=== PATIENT | female | born 1970 | race Caucasian/White ===

== ENCOUNTER → 2017-04-15 | Outpatient (CLI) | payer OTHER ==
[~2017-04-15] MED LIST: ALBU3IS INH; ALBU90OI6 INH; AZELASTINE137 MCG/0.; CEPH500 PO; CETI5 PO; DULERA 100 MCG/13 GM INH; EPIPEN0.3 MG/0.3 IJ; Flovent Diskus50 MCG IH; MONT10T PO; Pyridium200 MG PO
[2017-04-19 10:56] LABS: HPV Genotype 16 Not Detected (NOTDET); HPV Genotype 18 Not Detected (NOTDET)
[2017-05-06 13:24] LABS: HPV High Risk Other Not Detected (NOTDET)
== END | disposition home or self-care (01) ==
LOC: LAB 18:26
PROVIDERS: Physician Assistant
DX: Z01.419 Encounter for gynecological examination (general) (routine) without abnormal findings (principal)
CPT/HCPCS: 87624; G0145

== ENCOUNTER 2018-02-22 21:34 | Emergency (ER) | payer OTHER ==
[~2018-02-22] VITALS: Ht 170.2 cm; Wt 99.8 kg
[2018-02-22] MEDS ORDERED: CETI5 PO (21:49)
[2018-02-22] MEDS ORDERED: MONT10T PO (21:49)
[2018-02-22] MEDS ORDERED: ALBU3IS INH (21:52)
[2018-02-22] MEDS ORDERED: Flovent Diskus50 MCG IH (21:53)
[2018-02-22] MEDS ORDERED: DULERA 100 MCG/13 GM INH (21:53)
[2018-02-22] MEDS ORDERED: EPIPEN0.3 MG/0.3 IJ (21:53)
[2018-02-22] MEDS ORDERED: AZELASTINE137 MCG/0. (21:58)
[2018-02-22] MEDS ORDERED: ALBU90OI6 INH (21:59)
[2018-02-22 22:00] LABS: Source, Urine Clean Catch
[2018-02-22 22:19] LABS: Bilirubin, Urine Neg (Neg); Blood, Urine 5+ (Neg); Glucose Qualitative, Urine Neg (Neg); Ketones, Urine Neg (Neg); Leukocyte Esterase, Urine 3+ (Neg); Nitrite, Urine Pos (Neg); Protein, Urine 3+ (Neg); Urobilinogen, Urine NORM (Normal)
[2018-02-22 22:20] LABS: Appearance, Urine Cloudy (Clear); Color, Urine Yellow (P-Yellow)
[2018-02-22 22:28] LABS: Bacteria Many /hpf; Squamous Epithelial Cells Few /hpf (Few); White Blood Cells, Urine 50-100 /hpf (0-5)
[2018-02-22 22:29] LABS: Red Blood Cells, Urine 50-100 /hpf (0-2)
[2018-02-23] MEDS ORDERED: CEPH500 PO (00:34)
[2018-02-23] MEDS ORDERED: Pyridium200 MG PO (00:34)
== END 2018-02-23 00:58 | disposition home or self-care (01) ==
LOC: ER 21:34
PROVIDERS: Emergency Medicine
DX: N30.90 Cystitis, unspecified without hematuria (principal); J45.909 Unspecified asthma, uncomplicated; I10 Essential (primary) hypertension; Z88.0 Allergy status to penicillin; Z88.1 Allergy status to other antibiotic agents; Z88.8 Allergy status to other drugs, medicaments and biological substances; Z79.899 Other long term (current) drug therapy
CPT/HCPCS: 74176; 81001; 87077; 87086; 87186; 96372; 99284-25; J1885

== ENCOUNTER 2018-11-24 07:21 | Day surgery (SDC) | payer OTHER ==
[~2018-11-24] VITALS: Ht 170.2 cm; Wt 107.4 kg
[~2018-11-24 07:21] MED LIST changes: +BUDE6HFA INH; +HYDCHL25 PO; +Mobic15 MG PO; +NASAL DECONGEST30 MG PO; +SUMA25 PO; +XYZAL5 MG PO
[2018-11-24] MEDS ORDERED: MONT10T PO (08:16)
--- NOTE | 2018-11-24 08:32 | NUR ---
11/24/18 0832 Jc Gonzalez FIRST IV ATTEMPTED IN LEFT WRIST. PT TOW. VEIN BLEW.
--- NOTE | 2018-11-24 10:21 | NUR ---
11/24/18 Ramesh1 Cherrie Myrick PT C/O "NOT FEELING WELL". GAVE PT SALTINES AND RIVERA MIST. ASKED PT IF SHE WANTED MORE ANTIN[place]SEA MEDS AND PT DECLINES AT THIS TIME. "I WANT TO SEE IF THE SALTINES WILL WORK".
== END 2018-11-24 11:20 | disposition home or self-care (01) ==
LOC: ORSCSDS 07:21
PROVIDERS: Orthopaedic Surgery
PROC: 0SBD4ZZ Excision of Left Knee Joint, Percutaneous Endoscopic Approach (ICD-10-PCS; principal; 2018-11-24 08:30)
DX: S83.242A Other tear of medial meniscus, current injury, left knee, initial encounter (principal); M94.262 Chondromalacia, left knee; I10 Essential (primary) hypertension; G47.33 Obstructive sleep apnea (adult) (pediatric); J45.909 Unspecified asthma, uncomplicated; E66.01 Morbid (severe) obesity due to excess calories; Z68.37 Body mass index [BMI] 37.0-37.9, adult; Z79.899 Other long term (current) drug therapy
CPT/HCPCS: A9270-GY; J1100; J2250; J2405; J2704; J3010; J7120

== ENCOUNTER → 2019-08-16 | Outpatient (CLI) | payer OTHER | END | disposition home or self-care (01) | LOC: LAB 14:00 → LAB SHORT 14:00 | DX: N39.0 Urinary tract infection, site not specified (principal); J01.90 Acute sinusitis, unspecified | CPT/HCPCS: 87086 ==

== ENCOUNTER → 2020-11-18 | Outpatient (CLI) | payer OTHER | END | disposition home or self-care (01) | LOC: LAB SHORT 17:30 | DX: H60.392 Other infective otitis externa, left ear (principal) | CPT/HCPCS: 87070; 87205 ==

== ENCOUNTER → 2020-12-15 | Outpatient (CLI) | payer OTHER | END | disposition home or self-care (01) | LOC: LAB SHORT 09:30 | DX: R30.0 Dysuria (principal) | CPT/HCPCS: 87086 ==

== ENCOUNTER → 2022-05-18 | Outpatient (CLI) | payer OTHER | END | disposition home or self-care (01) | LOC: LAB SHORT 11:05 → LAB 11:05 | DX: R30.0 Dysuria (principal) | CPT/HCPCS: 87086 ==

== ENCOUNTER → 2023-01-30 | Outpatient (CLI) | payer OTHER | END | disposition home or self-care (01) | LOC: LAB 16:04 → LAB SHORT 16:04 | DX: N39.0 Urinary tract infection, site not specified (principal) | CPT/HCPCS: 87086; 87147 ==

== ENCOUNTER → 2023-02-13 | Outpatient (CLI) | payer BC, OTHER | LOC: LAB SHORT 11:25 → LAB 11:25 | DX: R31.9 Hematuria, unspecified (principal) | CPT/HCPCS: 87086 ==

== ENCOUNTER → 2023-02-17 | Outpatient (CLI) | payer BC, OTHER ==
[2023-03-02 03:51] LABS: HPV GENOTYPE 16 Not Detected; HPV GENOTYPE 18 Not Detected; HPV HIGH RISK Not Detected; HPV SOURCE Cervical
== END ==
LOC: LAB 12:55 → LAB SHORT 12:55
PROVIDERS: Advanced Practice Midwife
DX: Z01.419 Encounter for gynecological examination (general) (routine) without abnormal findings (principal)
CPT/HCPCS: 87624; G0123

== ENCOUNTER → 2023-07-04 | Outpatient (CLI) | payer BC, OTHER ==
[~2023-07-04] MED LIST changes: +IBUP800 PO; +Percocet 5-3251 EACH PO; +QVAR REDIHALE10.6 G2 IH
== END ==
LOC: LAB SHORT 11:53 → LAB 11:53
DX: R35.0 Frequency of micturition (principal)
CPT/HCPCS: 87086

== ENCOUNTER 2023-08-25 12:18 | Emergency (ER) | payer BC, OTHER ==
[~2023-08-25] VITALS: Ht 170.2 cm; Wt 104.3 kg
[2023-08-25 13:39] LABS: BASOPHILS ABSOLUTE AUTO 0.05 K/mm3 (0.00-0.23); BASOPHILS PERCENT AUTO 1 % (0-2); EOSINOPHILS ABSOLUTE AUTO 0.12 K/mm3 (0.00-0.68); EOSINOPHILS PERCENT AUTO 2 % (0-6); Hematocrit 41.1 % (33.0-51.0); Hemoglobin 13.6 g/dL (11.5-16.0); IMMATURE GRAN ABSOLUTE AUTO 0.02 K/mm3 (0.00-0.10); IMMATURE GRAN PERCENT AUTO 0 % (0-1); LYMPHOCYTES ABSOLUTE AUTO 2.06 K/mm3 (0.84-5.20); LYMPHOCYTES PERCENT AUTO 28 % (21-46); MONOCYTES ABSOLUTE AUTO 0.58 K/mm3 (0.16-1.47); MONOCYTES PERCENT AUTO 8 % (4-13); Mean Corpuscular HGB 27.6 pg (26.0-34.0); Mean Corpuscular HGB Conc 33.1 g/dL (31.5-36.5); Mean Corpuscular Volume 83 fL (80-100); Mean Platelet Volume 8.5 fL (9.1-12.4); NEUTROPHILS ABSOLUTE AUTO 4.44 K/mm3 (1.96-9.15); NEUTROPHILS PERCENT AUTO 61 % (41-73); Platelet Count 343 K/mm3 (150-400); RDW Coefficient Variation 13.1 % (11.7-14.2); RDW Standard Deviation 40.2 fL (35.1-46.3); Red Blood Cell Count 4.93 M/mm3 (3.80-5.20); White Blood Cell Count 7.27 K/mm3 (4.00-11.30)
[2023-08-25 14:00] LABS: Albumin, Blood 4.1 g/dL (3.4-5.0); Bilirubin, Total 0.6 mg/dL (0.1-1.0); Bun/Creatinine Ratio 31.6 (12.0-20.0); Calcium, Blood 9.4 mg/dL (8.5-10.1); Creatinine, Blood 0.48 mg/dL (0.40-1.00); Globulin, Blood 4.1 g/dL (2.2-4.0); Potassium, Blood 3.9 mmol/L (3.5-5.5); Total Protein, Blood 8.2 g/dL (6.4-8.2)
[2023-08-25] MEDS ORDERED: Acetaminophen 500 MG Tab PO ONE (15:35)
[2023-08-25 15:51] VITALS: BP 187/97
[2023-08-25] MEDS ORDERED: Droperidol 5 mg/2 ml Vial IV ONE (16:00)
== END 2023-08-25 16:51 | disposition home or self-care (01) ==
LOC: ER 12:18
PROVIDERS: Nurse Practitioner
DX: I16.0 Hypertensive urgency (principal); J45.909 Unspecified asthma, uncomplicated; Z86.718 Personal history of other venous thrombosis and embolism; Z79.899 Other long term (current) drug therapy; Z88.0 Allergy status to penicillin; Z88.8 Allergy status to other drugs, medicaments and biological substances; Z91.018 Allergy to other foods
CPT/HCPCS: 70450; 80053; 84484; 85025; 93005; 93010; 96374; 99284-25; A9270; J1790

== ENCOUNTER → 2024-01-03 | Outpatient (CLI) | payer BC, OTHER | END | disposition home or self-care (01) | LOC: LAB SHORT 18:08 → LAB 18:08 | DX: R30.0 Dysuria (principal) | CPT/HCPCS: 87086 ==